=== PATIENT | male | born 1990 ===

== ENCOUNTER 2020-03-04 02:33 | Inpatient (IN) ==
[2020-03-04] MEDS ORDERED: DOCUSATE SODIUM 100 MG CAPSULE PO PRN (05:44)
[2020-03-04] MEDS ORDERED: AZITHROMYCIN INJ 500 MG in SODIUM CHLORIDE 0.9% 250 ML IV SCH (06:00)
[2020-03-04 06:15] LABS: Basophils % 0.1 % (0.0-0.8); Hematocrit 38.8 VOL% (42.0-52.0); Hemoglobin 12.6 GM/DL (14.0-18.0); Immature Granulocytes % 0.6 %; Immature Granulocytes Absolute 0.08 #; Lymphocytes # 1.3 10*3/uL (1.4-4.0); Mean Corpuscular HGB Conc 32.5 GM/DL (32-36); Mean Platelet Volume 11.5 FL (9.6-12.0); Monocytes % 5.1 % (1.7-12.7); Neutrophils % 84.2 % (38.7-73.9); Platelet Count 202 T/CUMM (130-400); Red Blood Count 4.04 MC/CUMM (3.8-5.5); Red Cell Distribution Width 12.7 % (9.3-17.3); White Blood Count 13.4 T/CUMM (4-12)
[2020-03-04 06:38] LABS: Albumin 2.9 G/DL (3.4-5.0); Bilirubin,Total 1.2 MG/DL (0.2-1.0); Calcium 8.5 MG/DL (8.5-10.1); Osmolality,Calculated 273.8 MOS/KG (273-304); Total Protein 7.1 G/DL (6.4-8.3)
[2020-03-04] MEDS: AZITHROMYCIN 250 MG TABLET PO SCH (06:38)
[2020-03-04] MEDS: ACETAMINOPHEN 325 MG TABLET PO PRN ×3 (06:39→18:49)
[2020-03-04 06:54] LABS: Ferritin 239.2 ng/ml (26-388)
[2020-03-04] MEDS: ONDANSETRON 4 MG/2 ML VIAL IV PRN ×2 (06:55→19:40)
[2020-03-04] MEDS ORDERED: SODIUM CHLORIDE 0.9% 1,000 ML IV ONE (07:30)
[2020-03-04] MEDS: IBUPROFEN 600 MG TABLET PO PRN ×2 (07:40→20:34)
[2020-03-04] MEDS: cefTRIAXone 1,000 MG in SYRINGE 1 EACH IV SCH (08:40)
[2020-03-04] MEDS: FAMOTIDINE 20 MG TABLET PO SCH ×2 (08:40→20:34)
[2020-03-04] MEDS: ALBUTEROL INHALER 18 GM INH SCH ×3 (08:40→18:49)
[2020-03-04] MEDS ORDERED: ENOXAPARIN 100 MG/ML SYRINGE SUBCUT SCH (12:00)
[2020-03-04] MEDS: ENOXAPARIN 100 MG/ML SYRINGE SUBCUT SCH (14:10)
[2020-03-04] MEDS: CETIRIZINE 10 MG TABLET PO SCH (20:34)
[2020-03-04] MEDS ORDERED: ENOXAPARIN 40 MG/0.4 ML SYRINGE SUBCUT SCH (21:00)
[2020-03-05] MEDS: ALBUTEROL INHALER 18 GM INH SCH ×4 (00:50→19:50)
[2020-03-05 05:40] LABS: Basophils % 0.1 % (0.0-0.8); Eosinophils # 0.1 10*3/uL (0.0-0.87); Eosinophils % 0.5 % (0.00-10.9); Hematocrit 38.3 VOL% (42.0-52.0); Hemoglobin 12.3 GM/DL (14.0-18.0); Immature Granulocytes % 0.6 %; Immature Granulocytes Absolute 0.09 #; Lymphocytes # 1.7 10*3/uL (1.4-4.0); Lymphocytes % 11.1 % (21.2-54.2); Mean Corpuscular HGB Conc 32.1 GM/DL (32-36); Mean Corpuscular Volume 96.5 FL (87-102); Mean Platelet Volume 11.9 FL (9.6-12.0); Monocytes % 4.3 % (1.7-12.7); Neutrophils % 83.4 % (38.7-73.9); Platelet Count 183 T/CUMM (130-400); Red Blood Count 3.97 MC/CUMM (3.8-5.5); Red Cell Distribution Width 12.8 % (9.3-17.3); White Blood Count 15.2 T/CUMM (4-12)
[2020-03-05 05:51] LABS: Calcium 8.7 MG/DL (8.5-10.1); Osmolality,Calculated 275.7 MOS/KG (273-304)
[2020-03-05] MEDS: ENOXAPARIN 100 MG/ML SYRINGE SUBCUT SCH ×2 (08:30→21:11)
[2020-03-05] MEDS: cefTRIAXone 1,000 MG in SYRINGE 1 EACH IV SCH (08:30)
[2020-03-05] MEDS: FAMOTIDINE 20 MG TABLET PO SCH ×2 (08:31→21:10)
[2020-03-05] MEDS: AZITHROMYCIN 250 MG TABLET PO SCH (08:31)
[2020-03-05] MEDS: ACETAMINOPHEN 325 MG TABLET PO PRN ×2 (11:58→15:39)
[2020-03-05] MEDS: SODIUM CHLORIDE 0.9% 1,000 ML IV SCH ×2 (13:37→23:35)
[2020-03-05] MEDS: METOPROLOL TARTRATE 25 MG TABLET PO SCH ×2 (15:39→21:10)
[2020-03-05] MEDS: CETIRIZINE 10 MG TABLET PO SCH (21:10)
[2020-03-05] MEDS: IBUPROFEN 600 MG TABLET PO PRN (21:10)
[2020-03-06] MEDS: ALBUTEROL INHALER 18 GM INH SCH ×4 (01:30→20:10)
[2020-03-06 05:46] LABS: Basophils % 0.2 % (0.0-0.8); Eosinophils # 0.3 10*3/uL (0.0-0.87); Eosinophils % 2.7 % (0.00-10.9); Hematocrit 34.3 VOL% (42.0-52.0); Immature Granulocytes % 0.4 %; Immature Granulocytes Absolute 0.05 #; Lymphocytes # 2.5 10*3/uL (1.4-4.0); Lymphocytes % 20.1 % (21.2-54.2); Mean Corpuscular HGB Conc 32.1 GM/DL (32-36); Mean Corpuscular Volume 96.3 FL (87-102); Mean Platelet Volume 12.3 FL (9.6-12.0); Monocytes % 4.3 % (1.7-12.7); Neutrophils % 72.3 % (38.7-73.9); Platelet Count 218 T/CUMM (130-400); Red Blood Count 3.56 MC/CUMM (3.8-5.5); Red Cell Distribution Width 12.8 % (9.3-17.3); White Blood Count 12.6 T/CUMM (4-12)
[2020-03-06 06:14] LABS: Calcium 8.4 MG/DL (8.5-10.1); Osmolality,Calculated 271.8 MOS/KG (273-304)
[2020-03-06 06:16] LABS: Troponin I 0.848 NG/ML (0.00-0.045)
[2020-03-06] MEDS: METOPROLOL TARTRATE 25 MG TABLET PO SCH ×2 (08:22→20:10)
[2020-03-06] MEDS: ENOXAPARIN 100 MG/ML SYRINGE SUBCUT SCH ×2 (08:22→20:10)
[2020-03-06] MEDS: FAMOTIDINE 20 MG TABLET PO SCH ×2 (08:23→20:10)
[2020-03-06] MEDS: AZITHROMYCIN 250 MG TABLET PO SCH (08:23)
[2020-03-06] MEDS: ZINC GLUCONATE 50 MG TABLET PO SCH (08:24)
[2020-03-06] MEDS: SODIUM CHLORIDE 0.9% 1,000 ML IV SCH ×2 (09:38→20:10)
[2020-03-06] MEDS: ACETAMINOPHEN 325 MG TABLET PO PRN ×3 (11:59→20:10)
[2020-03-06] MEDS ORDERED: PHENOL 1.4% THROAT SPRAY 177 ML BOTTLE PO PRN (12:23)
[2020-03-06] MEDS: cefTRIAXone 2,000 MG in SYRINGE 1 EACH IV SCH (20:10)
[2020-03-06] MEDS: CETIRIZINE 10 MG TABLET PO SCH (20:10)
[2020-03-07] MEDS: ALBUTEROL INHALER 18 GM INH SCH ×4 (00:05→20:25)
[2020-03-07] MEDS: ACETAMINOPHEN 325 MG TABLET PO PRN ×4 (00:10→18:38)
[2020-03-07 05:39] LABS: Basophils % 0.2 % (0.0-0.8); Eosinophils # 0.3 10*3/uL (0.0-0.87); Eosinophils % 3.2 % (0.00-10.9); Hematocrit 32.9 VOL% (42.0-52.0); Hemoglobin 10.5 GM/DL (14.0-18.0); Immature Granulocytes % 0.4 %; Immature Granulocytes Absolute 0.04 #; Lymphocytes # 2.1 10*3/uL (1.4-4.0); Mean Corpuscular HGB Conc 31.9 GM/DL (32-36); Mean Corpuscular Volume 95.9 FL (87-102); Mean Platelet Volume 11.5 FL (9.6-12.0); Monocytes % 4.9 % (1.7-12.7); Neutrophils % 72.3 % (38.7-73.9); Platelet Count 256 T/CUMM (130-400); Red Blood Count 3.43 MC/CUMM (3.8-5.5); Red Cell Distribution Width 12.9 % (9.3-17.3); White Blood Count 10.8 T/CUMM (4-12)
[2020-03-07] MEDS: SODIUM CHLORIDE 0.9% 1,000 ML IV SCH (06:00)
[2020-03-07 06:11] LABS: Calcium 8.1 MG/DL (8.5-10.1); Ferritin 515.6 ng/ml (26-388)
[2020-03-07] MEDS: ENOXAPARIN 100 MG/ML SYRINGE SUBCUT SCH ×2 (08:32→20:46)
[2020-03-07] MEDS: AZITHROMYCIN 250 MG TABLET PO SCH (08:32)
[2020-03-07] MEDS: FAMOTIDINE 20 MG TABLET PO SCH ×2 (08:32→20:47)
[2020-03-07] MEDS: ZINC GLUCONATE 50 MG TABLET PO SCH (08:32)
[2020-03-07] MEDS: ASPIRIN EC 81 MG TABLET PO SCH (08:32)
[2020-03-07] MEDS: METOPROLOL TARTRATE 25 MG TABLET PO SCH ×2 (08:32→20:46)
[2020-03-07] MEDS: cefTRIAXone 2,000 MG in SYRINGE 1 EACH IV SCH (20:47)
[2020-03-07] MEDS: CETIRIZINE 10 MG TABLET PO SCH (20:51)
[2020-03-08] MEDS: ALBUTEROL INHALER 18 GM INH SCH ×4 (00:46→21:20)
[2020-03-08] MEDS: ACETAMINOPHEN 325 MG TABLET PO PRN (03:44)
[2020-03-08 05:19] LABS: Basophils % 0.2 % (0.0-0.8); Eosinophils # 0.3 10*3/uL (0.0-0.87); Eosinophils % 2.9 % (0.00-10.9); Hematocrit 30.8 VOL% (42.0-52.0); Hemoglobin 10.1 GM/DL (14.0-18.0); Immature Granulocytes % 0.5 %; Immature Granulocytes Absolute 0.05 #; Lymphocytes # 1.7 10*3/uL (1.4-4.0); Lymphocytes % 15.6 % (21.2-54.2); Mean Corpuscular HGB Conc 32.8 GM/DL (32-36); Mean Corpuscular Volume 93.3 FL (87-102); Mean Platelet Volume 11.4 FL (9.6-12.0); Monocytes % 4.3 % (1.7-12.7); Neutrophils % 76.5 % (38.7-73.9); Platelet Count 277 T/CUMM (130-400); White Blood Count 11.1 T/CUMM (4-12)
[2020-03-08 05:44] LABS: Calcium 8.1 MG/DL (8.5-10.1); Ferritin 498.7 ng/ml (26-388)
[2020-03-08] MEDS: FAMOTIDINE 20 MG TABLET PO SCH ×2 (08:14→21:21)
[2020-03-08] MEDS: ZINC GLUCONATE 50 MG TABLET PO SCH (08:14)
[2020-03-08] MEDS: METOPROLOL TARTRATE 25 MG TABLET PO SCH ×2 (08:14→21:21)
[2020-03-08] MEDS: ENOXAPARIN 100 MG/ML SYRINGE SUBCUT SCH ×2 (08:14→21:20)
[2020-03-08] MEDS: AZITHROMYCIN 250 MG TABLET PO SCH (08:14)
[2020-03-08] MEDS: ASPIRIN EC 81 MG TABLET PO SCH (08:14)
[2020-03-08] MEDS: FLUCONAZOLE 100 MG TABLET PO SCH (13:44)
[2020-03-08] MEDS: LACTOBACILLUS ACIDOPHILUS/BULGARICUS CAPLET PO SCH (13:44)
[2020-03-08] MEDS: CETIRIZINE 10 MG TABLET PO SCH (21:21)
[2020-03-08] MEDS: cefTRIAXone 2,000 MG in SYRINGE 1 EACH IV SCH (21:21)
[2020-03-08] MEDS: SODIUM CHLORIDE 0.9% 1,000 ML IV SCH ×2 (23:11→23:14)
[2020-03-09] MEDS: ALBUTEROL INHALER 18 GM INH SCH ×4 (02:35→19:28)
[2020-03-09 05:24] LABS: Basophils % 0.2 % (0.0-0.8); Eosinophils # 0.4 10*3/uL (0.0-0.87); Eosinophils % 3.6 % (0.00-10.9); Hematocrit 31.1 VOL% (42.0-52.0); Hemoglobin 10.2 GM/DL (14.0-18.0); Immature Granulocytes % 0.8 %; Immature Granulocytes Absolute 0.08 #; Lymphocytes # 2.8 10*3/uL (1.4-4.0); Mean Corpuscular HGB Conc 32.8 GM/DL (32-36); Mean Corpuscular Volume 94.2 FL (87-102); Mean Platelet Volume 10.9 FL (9.6-12.0); Monocytes % 5.8 % (1.7-12.7); Neutrophils % 61.6 % (38.7-73.9); Platelet Count 303 T/CUMM (130-400); Red Cell Distribution Width 13.1 % (9.3-17.3); White Blood Count 9.9 T/CUMM (4-12)
[2020-03-09 05:41] LABS: Calcium 8.5 MG/DL (8.5-10.1); Ferritin 413.4 ng/ml (26-388); Osmolality,Calculated 272.7 MOS/KG (273-304)
[2020-03-09] MEDS: FLUCONAZOLE 100 MG TABLET PO SCH (08:17)
[2020-03-09] MEDS: ZINC GLUCONATE 50 MG TABLET PO SCH (08:17)
[2020-03-09] MEDS: LACTOBACILLUS ACIDOPHILUS/BULGARICUS CAPLET PO SCH (08:17)
[2020-03-09] MEDS: METOPROLOL TARTRATE 25 MG TABLET PO SCH ×2 (08:18→21:40)
[2020-03-09] MEDS: ASPIRIN EC 81 MG TABLET PO SCH (08:18)
[2020-03-09] MEDS: ENOXAPARIN 100 MG/ML SYRINGE SUBCUT SCH (08:19)
[2020-03-09] MEDS: FAMOTIDINE 20 MG TABLET PO SCH ×2 (08:19→21:40)
[2020-03-09] MEDS: CETIRIZINE 10 MG TABLET PO SCH (21:41)
[2020-03-09] MEDS: cefTRIAXone 2,000 MG in SYRINGE 1 EACH IV SCH (21:41)
[2020-03-10] MEDS: ALBUTEROL INHALER 18 GM INH SCH ×2 (01:00→09:20)
[2020-03-10 04:18] LABS: Basophils % 0.3 % (0.0-0.8); Eosinophils # 0.3 10*3/uL (0.0-0.87); Eosinophils % 4.2 % (0.00-10.9); Hematocrit 31.9 VOL% (42.0-52.0); Hemoglobin 9.9 GM/DL (14.0-18.0); Immature Granulocytes % 1.1 %; Immature Granulocytes Absolute 0.08 #; Lymphocytes # 2.3 10*3/uL (1.4-4.0); Lymphocytes % 31.5 % (21.2-54.2); Mean Platelet Volume 10.6 FL (9.6-12.0); Monocytes % 8.1 % (1.7-12.7); Neutrophils % 54.8 % (38.7-73.9); Platelet Count 369 T/CUMM (130-400); Red Blood Count 3.29 MC/CUMM (3.8-5.5); Red Cell Distribution Width 13.2 % (9.3-17.3); White Blood Count 7.2 T/CUMM (4-12)
[2020-03-10] MEDS: SODIUM CHLORIDE 0.9% 1,000 ML IV SCH (04:36)
[2020-03-10 05:16] LABS: Calcium 8.4 MG/DL (8.5-10.1); Ferritin 358.7 ng/ml (26-388); Osmolality,Calculated 272.5 MOS/KG (273-304)
[2020-03-10] MEDS ORDERED: LEVOFLOXACIN 500 MG TABLET PO SCH (09:00)
[2020-03-10] MEDS ORDERED: ENOXAPARIN 40 MG/0.4 ML SYRINGE SUBCUT SCH (09:00)
[2020-03-10] MEDS: LACTOBACILLUS ACIDOPHILUS/BULGARICUS CAPLET PO SCH (09:23)
[2020-03-10] MEDS: FAMOTIDINE 20 MG TABLET PO SCH (09:23)
[2020-03-10] MEDS: METOPROLOL TARTRATE 25 MG TABLET PO SCH (09:23)
[2020-03-10] MEDS: ASPIRIN EC 81 MG TABLET PO SCH (09:23)
[2020-03-10 12:31] VITALS: BP 125/78
== END 2020-03-10 13:00 | disposition home or self-care (01) | DRG 871 ==
LOC: N.2E → SUATTDRO 05:36 → N.4E 03-09 15:05
PROVIDERS: ADMIT Internal Medicine; ATTEND Hospitalist